=== PATIENT | female | born 1980 ===

== ENCOUNTER 2018-11-04 16:41 | Emergency (ER) | payer MEDICAID ==
[2018-11-04 17:01] VITALS: BMI 33.6
[2018-11-04 17:04] VITALS: BP 120/77; PULSE 68; RESP 17; TEMP 98.3; O2SAT 98
[2018-11-04] MEDS ORDERED: Lidocaine 5% Patch TD STA (17:31)
[2018-11-04] MEDS ORDERED: Lidocaine 5% Patch TD ONE (18:09)
--- NOTE | 2018-11-04 18:23 | C.PDOC ---
History Of Present Illness 38 year old female presents to the ED for evaluation of left-sided back pain radiating into her buttocks, groin and leg which began around 3-4 days ago. 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 Patient is also complaining of her hands feeling swollen in the morning, and generalized aching after long hours of work. Patient also states she has been limping. She denies fever, chills, nausea, vomiting, or any other medical complaints at this time. Time Seen by Provider: 11/04/18 17:27 Chief Complaint (Nursing): Lower Extremity Problem/Injury History Per: Patient History/Exam Limitations: no limitations Onset/Duration Of Symptoms: Hrs Current Symptoms Are (Timing): Still Present Additional History Per: Patient Past Medical History Reviewed: Historical Data, Nursing Documentation, Vital Signs Vital Signs: Last Vital Signs Temp 98.3 F 11/04/18 16:58 Pulse 68 11/04/18 16:58 Resp 17 11/04/18 16:58 BP 120/77 11/04/18 16:58 Pulse Ox 98 11/04/18 16:58 - Medical History PMH: No Chronic Diseases Surgical History: Appendectomy Family History: States: Unknown Family Hx - Social History Hx Alcohol Use: No Hx Substance Use: No - Immunization History Hx Tetanus Toxoid Vaccination: No Hx Influenza Vaccination: Yes (08/2018) Hx Pneumococcal Vaccination: No Review Of Systems Constitutional: Negative for: Fever, Chills Gastrointestinal: Negative for: Nausea, Vomiting Musculoskeletal: Positive for: Back Pain (left-sided), Other (pain to buttocks, leg and groin ) Physical Exam - Physical Exam Appears: Non-toxic, No Acute Distress Skin: Normal Color, Warm, Dry Head: Atraumatic, Normacephalic Eye(s): bilateral: Normal Inspection Oral Mucosa: Moist Neck: Supple Chest: Symmetrical, No Deformity, No Tenderness Cardiovascular: Rhythm Regular, No Murmur Respiratory: Normal Breath Sounds, No Rales, No Rhonchi, No Wheezing Extremity: Tenderness (left buttock ), Capillary Refill (less than 2 seconds ) Neurological/Psych: Oriented x3, Normal Speech, Normal Cognition ED Course And Treatment O2 Sat by Pulse Oximetry: 98 (on RA ) Pulse Ox Interpretation: Normal Medical Decision Making Medical Decision Making: Progress: Tylenol PO, Flexeril PO, Motrin PO and Lidoderm patch administered. Disposition Counseled Patient/Family Regarding: Diagnosis, Need For Followup, Rx Given - Disposition Referrals: [facility] [Outside] Disposition: HOME/ ROUTINE Disposition Time: 18:47 Condition: STABLE Prescriptions: Cyclobenzaprine [Cyclobenzaprine HCl] 10 mg PO TID #12 tab Ibuprofen [Motrin] 600 mg PO TID #15 tab Instructions: Sciatica (DC) Forms: [employer] (Japanese), Gen Discharge Inst Japanese - POA Present On Arrival: None - Clinical Impression Clinical Impression: Sciatica - Scribe Statement The provider has reviewed the documentation as recorded by the Scribe (Shelia Alcaraz) Provider Attestation: All medical record entries made by the Scribe were at my direction and personally dictated by me. I have reviewed the chart and agree that the record accurately reflects my personal performance of the history, physical exam, medical decision making, and the department course for this patient. I have also personally directed, reviewed, and agree with the discharge instructions and disposition.
== END 2018-11-04 18:57 | disposition home or self-care (01) ==
LOC: C.ER 16:41
DX: M54.30 Sciatica, unspecified side (principal)